=== PATIENT | female | born 1960 | race African-American/Black ===

== ENCOUNTER 2021-10-04 00:41 | Emergency (ER) | payer BC, OTHER ==
[~2021-10-04] VITALS: Ht 160 cm; Wt 69.9 kg
[~2021-10-04 00:41] MED LIST: LISI20TA31
[2021-10-04] MEDS ORDERED: ONDANSETRON HCL 4MG/2ML INJ IV STA (04:07)
[2021-10-04] MEDS ORDERED: ACETAMINOPHEN 325MG TABLET PO STA (04:07)
[2021-10-04] MEDS ORDERED: MORPHINE SULFATE 4 MG/ML CPJ (NOT FOR IM USE) IV STA (04:07)
[2021-10-04] MEDS ORDERED: SODIUM CHLORIDE 0.9% 1,000 ML IV ONE (04:15)
[2021-10-04] MEDS ORDERED: CEFTRIAXONE 1 G PREMIX 50 ML IV ONE (04:15)
[2021-10-04 04:33] LABS: HEMATOCRIT. 41.2 % (36.0-48.0); HEMOGLOBIN. 13.4 g/dL (12.0-16.0); MEAN CORPUSCULAR HEMOGLOBIN 29.2 pg (28.0-32.0); MEAN CORPUSCULAR VOLUME 90.1 fL (81.0-99.0); PLATELET 154 x1000/uL (130-400); RED BLOOD CELL COUNT 4.57 mill/uL (4.2-5.4)
[2021-10-04 04:51] LABS: CHLORIDE 103 mEq/L (98-107)
[2021-10-04 05:18] LABS: PLATELET ESTIMATE NORMAL
[2021-10-04 05:30] LABS: CLARITY URINE CLOUDY (CLEAR); COLOR URINE DARK YELLOW (YELLOW); KETONES URINE 1+ (NEGATIVE); LEUKOCYTE ESTERASE URINE 3+ (NEGATIVE); NITRITE URINE POSITIVE (NEGATIVE); OCCULT BLOOD URINE 2+ (NEGATIVE); PH URINE 5.5 (4.5-8.0); PROTEIN URINE 2+ (NEGATIVE); SPECIFIC GRAVITY URINE 1.012 (1.005-1.030)
[2021-10-04] MEDS ORDERED: IBUP-2029 MT (08:10)
[2021-10-04] MEDS ORDERED: CEPH500C2 MT (08:10)
[2021-10-04 09:00] VITALS: BP 104/52
== END 2021-10-04 09:10 | disposition home or self-care (01) ==
LOC: ER 00:41
DX: M54.59 Other low back pain (principal); R30.0 Dysuria; R51.9 Headache, unspecified; R50.9 Fever, unspecified; N20.0 Calculus of kidney
CPT/HCPCS: 36415; 71045; 74176; 80053; 81003; 83605; 83690; 85025; 87040; 87077; 87086; 87186; 96365; 96375; 99285; J0696; J2270; J2405; J7030